=== PATIENT | male | born 1970 | race Caucasian/White ===

== ENCOUNTER 2025-03-12 21:59 | Emergency (ER) | payer OTHER ==
[~2025-03-12] VITALS: Ht 185.4 cm; Wt 90.7 kg
[2025-03-12] MEDS ORDERED: KETOROLAC TROMETHAMINE 30 MG INJ ONE (22:39)
[2025-03-12] MEDS: KETOROLAC TROMETHAMINE 30 MG INJ IM ONE (22:42)
[2025-03-12 22:51] LABS: *BILIRUBIN,URIN NEGATIVE (NEGATIVE); *BLOOD, URINE NEGATIVE (NEGATIVE); *CLARITY,URINE CLEAR (CLEAR); *COLOR,URINE YELLOW (YELLOW); *KETONES,URINE TRACE (NEGATIVE); *PROTEIN,URINE NEGATIVE (NEGATIVE); *UROBILINOGEN,URINE 0.2 E.U./dl (NORMAL); LEUKOCYTE ESTERASE ,URINE NEGATIVE (NEGATIVE); NITRITE, URINE NEGATIVE (NEGATIVE); PH,URINE 5.5 (5.0-8.0); UGLUCOSE 3+ (NEGATIVE)
[2025-03-13] MEDS ORDERED: CYCL10TA9 PO (00:08)
[2025-03-13] MEDS ORDERED: DICL100G26 TP (00:08)
[2025-03-13 00:42] VITALS: BP 125/78; O2SAT 99
== END 2025-03-13 00:44 | disposition home or self-care (01) ==
LOC: ER 22:19
DX: M54.6 Pain in thoracic spine (principal); M25.511 Pain in right shoulder; M25.512 Pain in left shoulder; R10.9 Unspecified abdominal pain; E11.9 Type 2 diabetes mellitus without complications; Z87.442 Personal history of urinary calculi
CPT/HCPCS: 99285; 74176; 81003; 96372; J1885; A4606; A4663